=== PATIENT | male | born 1995 | race Caucasian/White ===

== ENCOUNTER 2024-09-25 06:05 | Day surgery (SDC) | payer OTHER ==
[~2024-09-25] VITALS: Ht 177.8 cm; Wt 92.1 kg
[2024-09-25] MEDS ORDERED: LR 1,000 ML IV SCH (06:20)
[2024-09-25] MEDS: fentaNYL 100 MCG/2 ML INJECTION IV PRN (07:24)
[2024-09-25] MEDS: MIDAZOLAM INJ 2MG/2ML VIAL IV PRN (07:24)
[2024-09-25] MEDS: EPINEPHrine INJ 1 MG/ML 1ML AMP PN ONE (07:53)
[2024-09-25] MEDS: ceFAZolin SOD 2 GM in IV 1 EA IV ONE (07:54)
[2024-09-25] MEDS: LIDOCAINE 1% SDV 5ML VIAL PN ONE (07:54)
[2024-09-25] MEDS: dexAMETHasone 10MG/1ML VIAL PRES.FREE PN ONE (07:54)
[2024-09-25] MEDS: ROPIvacaine 0.5% 30ML VIAL PN ONE (07:54)
[2024-09-25] MEDS ORDERED: ACETAMINOPHEN 1000MG 100ML IV BAG As Ordered ONE (08:01)
[2024-09-25] MEDS ORDERED: SUGAMMADEX SODIUM 500 MG/5 ML VIAL (BRIDION) As Ordered ONE (08:01)
[2024-09-25] MEDS ORDERED: LIDOCAINE 2% 100MG/5ML SDV (FOR ANES.) As Ordered ONE (08:01)
[2024-09-25] MEDS ORDERED: fentaNYL 100 MCG/2 ML INJECTION As Ordered ONE (08:01)
[2024-09-25] MEDS ORDERED: ONDANSETRON 4MG 2ML VIAL As Ordered ONE (08:01)
[2024-09-25] MEDS ORDERED: MIDAZOLAM INJ 2MG/2ML VIAL As Ordered ONE (08:01)
[2024-09-25] MEDS ORDERED: propofoL 200 MG/20 ML VIAL As Ordered ONE (08:01)
[2024-09-25] MEDS ORDERED: ROCURONIUM BROMIDE 50MG/5ML VIAL As Ordered ONE (08:01)
[2024-09-25] MEDS ORDERED: dexmedeTOMIDine (4MCG/ML)200MCG/50ML BTL (PRECEDEX) As Ordered ONE (08:01)
[2024-09-25] MEDS: EPINEPHrine 1MG/ML INJ 30ML MD-VIAL As Ordered ONE (08:35)
[2024-09-25] MEDS ORDERED: ePHEDrine SULFATE 25 MG/5 ML(5MG/ML) SYRINGE As Ordered ONE (08:41)
[2024-09-25] MEDS: TRANEXAMIC ACID 100 MG/ML 10ML VIAL As Ordered ONE (09:00)
[2024-09-25] MEDS ORDERED: fentaNYL 100 MCG/2 ML INJECTION IV PRN (12:20)
[2024-09-25] MEDS ORDERED: ONDANSETRON 4MG 2ML VIAL IV PRN (12:20)
[2024-09-25] MEDS: oxyCODONE 5MG TAB PO PRN (12:41)
[2024-09-25] MEDS: TRANEXAMIC ACID 100 MG/ML 10ML VIAL IV ONE (13:04)
[2024-09-25 14:15] VITALS: BP 144/80; TEMP 98.3; O2SAT 96
== END 2024-09-25 14:22 | disposition home or self-care (01) ==
LOC: M SDC 06:05
PROVIDERS: ATTEND Orthopaedic Surgery
DX: M23.611 Other spontaneous disruption of anterior cruciate ligament of right knee (principal); M23.221 Derangement of posterior horn of medial meniscus due to old tear or injury, right knee; Z88.0 Allergy status to penicillin
CPT/HCPCS: 29882; 29888; 73560; C1713; J0131; J0171; J0665; J0690; J1100; J2250; J2405; J3010